=== PATIENT | male | born 1965 | race Caucasian/White ===

== ENCOUNTER 2019-01-18 05:40 | Day surgery (SDC) | payer OTHER ==
[~2019-01-18] VITALS: Ht 182.9 cm; Wt 68.9 kg
[~2019-01-18 05:40] MED LIST: AZILECT1 MG PO; COZAAR50 MG PO; MACROBID 100 M100 MG PO; NEUPRO1 EAC2 TOP; SINEMET 25-1001 EACH PO
== END 2019-01-18 15:50 | disposition home or self-care (01) ==
LOC: CIR.AMB 05:40 → SURG 08:15 → EDSTATUS 08:15 → CIR.AMB 15:50
DX: N40.1 Benign prostatic hyperplasia with lower urinary tract symptoms (principal); R33.8 Other retention of urine

== ENCOUNTER 2019-01-28 09:34 | Outpatient (CLI) | payer OTHER | END 2019-01-28 09:46 | disposition home or self-care (01) | LOC: LAB 09:34 | DX: N30.00 Acute cystitis without hematuria (principal) ==

== ENCOUNTER → 2019-03-09 10:04 | Outpatient (CLI) | payer OTHER | END | disposition home or self-care (01) | LOC: LAB 10:04 | DX: N30.00 Acute cystitis without hematuria (principal) ==

== ENCOUNTER 2019-03-13 11:21 | Inpatient (IN) | payer OTHER ==
[~2019-03-13] VITALS: Ht 182.9 cm; Wt 70.3 kg
== END 2019-03-24 11:49 | disposition home or self-care (01) | DRG 654 ==
LOC: SURG 03-22 06:00 → O/R 03-22 06:00 → SURG 03-22 07:00
PROVIDERS: ADMIT Urology
PROC: 0TBB0ZZ Excision of Bladder, Open Approach (ICD-10-PCS; principal; 2019-03-22 07:00)
DX: N32.3 Diverticulum of bladder (principal); N30.00 Acute cystitis without hematuria

== ENCOUNTER 2019-03-17 07:59 | Outpatient (CLI) | payer OTHER | END 2019-03-17 15:00 | disposition home or self-care (01) | LOC: LAB 07:59 | DX: I10 Essential (primary) hypertension (principal); N30.00 Acute cystitis without hematuria ==